=== PATIENT | female | born 2005 | race Hispanic/Latino ===

== ENCOUNTER 2025-03-11 22:04 | Emergency (ER) | payer OTHER, SELFPAY ==
[2025-03-11 23:21] LABS: Urine Culture Reflex Order REFLEXED; Urine Microscopic Reflex YN ORDER UMIC
[2025-03-11 23:28] LABS: Absolute Lymphocytes (CBC) 1.6 K/uL (0.7-4.9); Hematocrit 39.5 % (36.0-45.0); Hemoglobin 13.8 g/dL (12.0-15.0); MCH 30.8 pg (27.0-35.0); MCHC 34.8 g/dL (32.0-36.0); MCV 88.4 fL (80-100); MPV 9.2 fL (7.6-11.3); Nucleated RBC Absolute Count 0.0 (0-0); Nucleated Red Blood Cells % 0.1 % (0-0); RBC Red Blood Cell Count 4.47 M/uL (3.86-4.86); White Blood Count 5.20 thou/uL (4.3-10.9)
[2025-03-11 23:29] LABS: Anion Gap 5.5 mEq/L (5.0-15.0); BUN Blood Urea Nitrogen 12 mg/dL (7-18); Glucose Level 102 mg/dL (74-106); Potassium 3.5 mEq/L (3.5-5.1)
[2025-03-11 23:35] LABS: HCG, Quantitative < 1 mIU/mL (1-3)
--- NOTE | 2025-03-11 23:40 | EDPHYS ---
Physician Documentation [facility] Name: Azra Gonzáles Age: 19 yrs Sex: Female : 2005 Arrival Date: 03/11/2025 Time: 22:04 Bed 12 Private MD: ED Physician Elliott Mackenzie HPI: 03/12 02:14 This 19 yrs old Female presents to ER via Ambulatory with complaints of sb4 Abdominal Cramping, Vaginal Bleeding, + Preg <12wks. 02:14 The patient presents to the emergency department with abdominal pain, of the suprapubic sb4 area, vaginal bleeding, that is moderate. course: care: none, Leakage of Fluid: none appreciated, Ultrasound: the patient has not had an ultrasound, Risk/complications: no obvious risks or complications are appreciated. Previous pregnancies: the patient has never been . Patient reports lower abdominal cramping for the past few days. States she started experiencing vaginal bleeding today. Is concerned because she had a positive test 2 weeks ago, last menstrual cycle was at the beginning of January. Has an appointment to see OB tomorrow. 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 - Infectious Disease History:: Denies. - Social history:: Smoking status: Patient denies any tobacco usage or history of. ROS: 03/12 02:14 Constitutional: Negative for fever, chills, and weight loss, sb4 : Positive for pelvic pain, vaginal bleeding, menstrual abnormality, missed period, All other systems are negative, Exam: 02:14 Head/Face: Normocephalic, atraumatic. Eyes: Extra-ocular motions intact. Periorbital sb4 areas with no swelling, redness, or edema. ENT: Mucous membranes moist. Cardiovascular: Regular rate and rhythm with a normal S1 and S2. Respiratory: No increased work of breathing, no retractions or nasal flaring. Abdomen/GI: Soft, non-tender, no distension. Skin: Warm, dry with normal turgor. Normal color with no rashes, no lesions, and no evidence of cellulitis. 02:14 Constitutional: The patient appears alert, awake, anxious, Vital Signs: 03/11 22:15 BP 129 / 71; Pulse 77; Resp 16 S; Temp 97.6; Pulse Ox 100% on R/A; Weight 56.7 kg; ha1 Height 5 ft. 2 in. ; Pain 7/10; 23:30 BP 121 / 70; Pulse 76; Resp 18; Pulse Ox 99% ; rg5 22:15 Body Mass Index 22.86 (56.70 kg, 157.48 cm) - Percentile 63.9 % ha1 22:15 Pain Scale: Adult ha1 MDM: 22:08 Medical Screening Exam initiated sb4 03/12 02:14 Differential diagnosis: threatened Ab, ectopic , UTI, menstrual cycle. Data sb4 reviewed: vital signs, nurses notes, lab test result(s), radiologic studies, ultrasound, and as a result, I will discharge patient. Historians other than the Patient: Parent: mother. Counseling: I had a detailed discussion with the patient and/or guardian regarding the historical points, exam findings, and any diagnostic results supporting the discharge/admit diagnosis, lab results, radiology results, the need for outpatient follow up, for definitive care, to return to the emergency department if symptoms worsen or persist or if there are any questions or concerns that arise at home. ED course: Beta-hCG is negative, ultrasound shows no evidence of intrauterine . Other patient was and miscarried or had a false positive at home. It is likely what she is experiencing now has a normal menstrual cycle. Will safely discharge home at this time. 03/11 22:33 Order name: UA Rfx Booker Cult if indicated; Complete Time: 23:23 sb4 03/11 22:33 Order name: Abo/rh Typing sb4 03/11 22:33 Order name: Basic Metabolic Panel; Complete Time: 23:35 sb4 03/11 22:33 Order name: CBC with Diff; Complete Time: 23:34 sb4 03/11 22:33 Order name: Test, Urine; Complete Time: 23:36 sb4 03/11 22:33 Order name: Quantitative Hcg; Complete Time: 23:35 sb4 03/11 23:26 Order name: Urine Culture EDMS 03/11 22:33 Order name: Transvaginal OB US sb4 03/11 23:18 Order name: Abdomen Pelvis Scan\E\US EDMS 03/11 22:33 Order name: IV Saline Lock; Complete Time: 22:55 sb4 03/11 22:33 Order name: Labs collected and sent; Complete Time: 22:55 sb4 Administered Medications: No medications were administered Disposition: 20:18 Co-signature as Attending Physician, Elliott Mackenzie MD I agree with the assessment sp4 and plan of care. I reviewed the patient's care provided by Advanced Practice Provider \T\ agree w/ the diagnosis \T\ care plan. I personally saw the pt \T\ performed a substantive portion of the visit, incldng all aspects of the (History/Exam/Medical Decision Making). Disposition Summary: 03/11/25 23:39 Discharge Ordered Notes: Location: Home sb4 Problem: new sb4 Symptoms: have improved sb4 Condition: Stable sb4 Diagnosis - Other specified abnormal uterine and vaginal bleeding sb4 - Encounter for test, result negative sb4 Followup: sb4 - With: Private Physician - When: As needed - Reason: Recheck today's complaints, Re-evaluation by your physician Discharge Instructions: - Discharge Summary Sheet sb4 - Abnormal Uterine Bleeding sb4 - Home Test Information sb4 Forms: - Patient Portal Instructions sb4 - Leadership Thank You Letter sb4 Signatures: Dispatcher [employer] Mirlande Nicolas RN RN ha1 Shi Tobin PADwayneC PATrent sb4 Elliott Mackenzie MD MD sp4 Corrections: (The following items were deleted from the chart) 03/11 22:33 22:33 Transvaginal Ob+US.RAD.BRZ ordered. EDMS EDMS 22:34 22:34 UA Rfx Booker Cult if indicated+U.LAB.BRZ ordered. EDMS EDMS 22:34 22:34 ABO/RH TYPING+BB.LAB.BRZ ordered. EDMS EDMS 22:34 22:34 BASIC METABOLIC PANEL+C.LAB.BRZ ordered. EDMS EDMS 22:34 22:34 CBC+H.LAB.BRZ ordered. EDMS EDMS 22:34 22:34 Test, Urine+UC.LAB.BRZ ordered. EDMS EDMS 22:34 QUANTITATIVE HCG+C.LAB.BRZ ordered. EDMS EDMS
--- NOTE | 2025-03-11 23:40 | ER ---
Nurse's Notes [facility] Name: Azra Gonzáles Age: 19 yrs Sex: Female : 2005 Arrival Date: 03/11/2025 Time: 22:04 Bed 12 Private MD: Diagnosis: Other specified abnormal uterine and vaginal bleeding;Encounter for test, result negative Presentation: 03/11 22:15 Chief complaint: Patient states: COUPLE OF WEEKS AGO HAD A POSSITIVE TEST. ha1 TODAY NOTICED A LARGE BLOOD CLOT IN THE TOILET AFTER URINATING . APPROXIMAL 6 WEEKS . FIRST . PELVIC CRAMPING. 22:15 Method Of Arrival: Ambulatory ha1 22:15 Coronavirus screen: Client denies travel out of the [place] in the last 14 days. Ebola ha1 Screen: No symptoms or risks identified at this time. Initial Sepsis Screen: Does the patient meet any 2 criteria? No. Patient's initial sepsis screen is negative. Does the patient have a suspected source of infection? No. Patient's initial sepsis screen is negative. Risk Assessment: Do you want to hurt yourself or someone else? Patient reports no desire to harm self or others. Onset of symptoms was March 11, 2025. 22:15 Acuity: BETH 3 ha1 Triage Assessment: 22:32 General: Appears comfortable, Behavior is calm, cooperative. Pain: Complains of pain in ha1 pelvis Pain currently is 7 out of 10 on a pain scale. Quality of pain is described as crampy. Neuro: Level of Consciousness is awake, alert, obeys commands, Oriented to person, place, time, situation. Cardiovascular: Capillary refill < 3 seconds Patient's skin is warm and dry. Respiratory: Airway is patent Respiratory effort is even, unlabored, Respiratory pattern is regular, symmetrical. 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 - Infectious Disease History:: Denies. - Social history:: Smoking status: Patient denies any tobacco usage or history of. Screenin:56 [facility] ED Fall Risk Assessment (Adult) History of falling in the last 3 months, rg5 including since admission No falls in past 3 months (0 pts) Confusion or Disorientation No (0 pts) Intoxicated or Sedated No (0 pts) Impaired Gait No (0 pts) Mobility Assist Device Used No (0 pt) Altered Elimination No (0 pt) Score/Fall Risk Level 0 - 2 = Low Risk Oriented to surroundings, Maintained a safe environment. Abuse screen: Denies threats or abuse. Nutritional screening: No deficits noted. Tuberculosis screening: No symptoms or risk factors identified. Assessment: 22:56 General: Appears in no apparent distress. Behavior is calm, cooperative, appropriate rg5 for age. Pain: Complains of pain in groin Quality of pain is described as aching. Neuro: Level of Consciousness is awake, alert, obeys commands, Oriented to person, place, time, situation. Cardiovascular: Denies chest pain. Respiratory: Airway is patent Trachea midline Respiratory effort is even, unlabored, Respiratory pattern is regular, symmetrical. GI: Abd is soft. : Reports vaginal bleeding that is. EENT: No signs and/or symptoms were reported regarding the EENT system. Derm: Skin is intact, Skin is dry, Skin is normal, Skin temperature is warm. Musculoskeletal: Circulation, motion, and sensation intact. Range of motion: intact in all extremities. 23:35 Reassessment: No changes from previously documented assessment. Patient and/or family rg5 updated on plan of care and expected duration. Pain level reassessed. Patient is alert, oriented x 3, equal unlabored respirations, skin warm/dry/pink. Vital Signs: 22:15 BP 129 / 71; Pulse 77; Resp 16 S; Temp 97.6; Pulse Ox 100% on R/A; Weight 56.7 kg; ha1 Height 5 ft. 2 in. ; Pain 7/10; 23:30 BP 121 / 70; Pulse 76; Resp 18; Pulse Ox 99% ; rg5 22:15 Body Mass Index 22.86 (56.70 kg, 157.48 cm) - Percentile 63.9 % ha1 22:15 Pain Scale: Adult ha1 ED Course: 22:07 Patient arrived in ED. im 22:07 Shi Tobin PA-C is PHCP. sb4 22:07 Elliott Mackenzie MD is Attending Physician. sb4 22:32 Triage completed. ha1 22:41 Ollie Menchaca, RN is Primary Nurse. rg5 22:56 Patient has correct armband on for positive identification. Placed in gown. Bed in low rg5 position. Call light in reach. Side rails up X 1. Door closed. Noise minimized. Warm blanket given. 22:56 No provider procedures requiring assistance completed. rg5 23:18 Transvaginal OB US In Process Unspecified. EDMS 23:18 Abdomen Pelvis Scan\E\US In Process Unspecified. EDMS 03/12 00:04 IV discontinued, bleeding controlled, No redness/swelling at site. Pressure dressing rg5 applied. Administered Medications: No medications were administered Medication: 03/11 22:56 VIS not applicable for this client. rg5 Outcome: 23:39 Discharge ordered by . sb4 03/12 00:04 Discharged to home ambulatory, rg5 Condition: stable Discharge instructions given to patient, Instructed on discharge instructions, Demonstrated understanding of instructions, 00:05 Patient left the ED. rg5 Signatures: Dispatcher [employer] EDHI Mirlande Kaiser RN RN ha1 Shi Tobin PA-C PA-C sb4 [place] Ollie Menchaca, RN RN rg5
[2025-03-12 05:15] VITALS: TEMP 97.6
[2025-03-12 05:16] VITALS: BP 121/70; O2SAT 99
--- NOTE | 2025-03-12 07:30 | RAD REPORT ---
EXAM DESCRIPTION: Transvaginal OB CLINICAL HISTORY: 19 years Female, Abd cramping, ;Vaginal bleeding COMPARISON: None. TECHNIQUE: Transvaginal images of the pelvis obtained. FINDINGS: Uterus: Anteverted, measuring approximately 6.9 x 3.4 x 4.4 cm. No myometrial mass. Gestational sac/Yolk sac/ pole: None identified. Endometrial stripe measures up to 0.6 cm in thi ckness. Right ovary: Measures 3.4 x 2.5 x 2.3 cm. No suspicious sonographic abnormality. Left ovary: Measures 4.1 x 3.0 x 2.6 cm. Left ovarian corpus luteum measures 3.1 x 2.5 x 2.2 cm. Adnexa: No extraovarian adnexal mass. Free fluid: None identified. IMPRESSION: No intrauterine is identified. This could be due to early stage of . Cannot exclud e miscarriage or ectopic on the basis of this exam. Recommend continued close clinical follow-up with repeat ultrasound as indicated. Electronically signed by: Marie Cash MD 03/12/2025 12:26 AM [facility] Due to temporary technical issues with the [employer] reporting system, reports are being ellis d by the in-house radiologist without review as a courtesy to ensure prompt reporting the interpreting radiologist is fully responsible for the content of the report Transcribed Date/Time: 03/12/2025 7:30 AM
== END 2025-03-12 00:05 | disposition home or self-care (01) ==
LOC: ER 22:04
DX: N93.8 Other specified abnormal uterine and vaginal bleeding (principal); Z32.02 Encounter for pregnancy test, result negative
CPT/HCPCS: 36415; 76817; 80048; 81001; 81025; 84702; 85025; 86900; 86901; 87086; 87088; 93975; 99283